=== PATIENT | female | born 1995 | race Caucasian/White ===

== ENCOUNTER 2024-06-05 09:49 | Emergency (ER) | payer SELFPAY ==
[2024-06-05 09:56] VITALS: BP 143/96; PULSE 93; RESP 16; TEMP 37.2; O2SAT 97; BMI 31.4
--- NOTE | 2024-06-05 10:02 | ED_ITS ---
HPI - Allergic Reaction General Chief complaint: Allergic Reaction Stated complaint: reaction to meds Time Seen by Provider: 06/05/24 09:52 Source: patient, RN notes reviewed and old records reviewed Mode of arrival: Ambulatory Limitations: no limitations History of Present Illness HPI narrative: 29-year-old female no reported medical issues who states that she was treated for pneumonia found on chest x-ray with the amoxicillin completed her antibiotics and Thursday. She noticed around Thursday that she was having some tightness and discomfort in her legs, nose little bit of redness at both ankles and some increased swelling. Patient states little bit of back and flank pain as well. She denies fevers or chills no cold cough or congestion. No chest pain or shortness of breath. No swelling of her lips or airway. No rash or skin changes elsewhere. No GI or urinary symptoms. Patient states has been persisting and not resolved. She finished her antibiotics this Thursday. She states no daily prescriptions normally. Denies any major surgeries. Had tendinopathy with ciprofloxacin but no other drug allergies. No tobacco, alcohol or reported. Marijuana occasionally, no other recreational drugs. Patient states she has not had similar symptoms in the past. Related Data Previous Rx's Medication Instructions Recorded meloxicam 7.5 mg tablet 7.5 mg PO BID PRN pain #10 tabs 06/05/24 Allergies Allergy/AdvReac Type Severity Reaction Status Date / Time ciprofloxacin [From Cipro] AdvReac Verified 06/05/24 10:17 Penicillins AdvReac Verified 06/05/24 10:17 Review of Systems Review of Systems ROS Unobtainable: All systems reviewed & are unremarkable except as noted in HPI and below Exam Narrative Exam Narrative: GENERAL: Alert and oriented x three, female in mild distress HEENT: Head normocephalic, atraumatic, EOMI, pupils reactive, face symmetric, moist mucous membranes, no oropharyngeal involvement or ulcerations or lesions. Swelling. NECK: Supple, full range of motion CARDIOVASCULAR: Regular rate and rhythm without murmurs, rubs or gallops. RESPIRATORY: Breath sounds equal bilaterally, no wheezes rales or rhonchi. Tachypnea accessory muscle ABDOMEN: Soft, nontender. Normoactive bowel sounds all 4 quadrants. No guarding or rebound, rigidity, no mass : No CVA tenderness EXTREMITIES: Normal range of motion, no clubbing. Very mild edema ankles. +dorsalis pedis bilaterally. There is some slight erythema bilateral ankles but no warmth, no other rash or skin changes noted. Neurovascularly intact NEUROLOGICAL: Cranial nerves II through XII grossly intact. Moving all extremities SKIN: Warm, dry, no petechiae, no rashes or lesions otherwise noted. Initial Vital Signs Initial Vital Signs: Vital Signs Temperature 98.9 F 06/05/24 09:56 Pulse Rate 93 H 06/05/24 09:56 Respiratory Rate 16 06/05/24 09:56 Blood Pressure 143/96 H 06/05/24 09:56 Pulse Oximetry 97 06/05/24 09:56 Oxygen Delivery Method Room Air 06/05/24 09:56 Course Orders Ordered: ED Orders 06/05/24 10:20 EKG-12 Lead Stat 06/05/24 10:21 Chest [XR chest 1V] Stat 06/05/24 10:40 BNP [NT-proBNP (BNP-Adult 18+)] Stat CBC Auto Diff [Complete Blood Count AUTO DIFF] Stat CMP [Comprehensive Metabolic Panel] Stat Troponin & CK Cardiac Panel Stat Vital Signs Vital signs: Vital Signs - 8 hr 06/05/24 09:56 06/05/24 11:40 Temperature 98.9 F Pulse Rate 93 H 94 H Respiratory Rate 16 18 Blood Pressure 143/96 H 130/81 Pulse Oximetry 97 100 Oxygen Delivery Method Room Air Room Air MDM - Allergic Reaction Lab Data 06/05/24 10:40 06/05/24 10:40 Labs: Lab Results 06/05/24 Range/Units 10:40 WBC 12.8 H (4.5-11.0) X10^3/uL RBC 4.40 (4.0-5.2) X10^6/uL Hgb 13.6 (12.0-16.0) g/dL Hct 40.7 (36-46) % MCV 92.5 (80-100) fL MCH 30.9 (26-34) PG MCHC 33.4 (30-36) % RDW 12.5 (11.6-14.8) % Plt Count 285 (150-400) X10^3/uL Neut % (Auto) 85.4 H (50-75) % Lymph % (Auto) 4.3 L (25-40) % [place] % (Auto) 8.2 (3-14) % Eos % (Auto) 0.7 L (2-4) % Baso % (Auto) 1.4 (0-2) % Neut # (Auto) 65552 H (3486-8050) /uL Lymph # (Auto) 600 L (4797-0601) /uL [place] # (Auto) 1100 H (0-900) /uL Eos # (Auto) 100 (0-450) /uL Baso # (Auto) 200 H (0-100) /uL Sodium 138 (137-145) mmol/L Potassium 3.9 (3.4-5.1) mmol/L Chloride 106 (98-107) mmol/L Carbon Dioxide 24 (22-32) mmol/L BUN 7 (7-17) mg/dL Creatinine 0.67 (0.52-1.04) mg/dL Estimated GFR > 60 (>60) mL/min BUN/Creatinine Ratio 10.4 (6-22) Glucose 111 H (70-100) mg/dL Calcium 9.4 (8.4-10.2) mg/dL Total Bilirubin 1.5 H (0.2-1.3) mg/dL AST 27 (14-36) IU/L ALT 27 (<35) IU/L Alkaline Phosphatase 87 (38-126) U/L Total Creatine Kinase 75 (30-135) U/L Troponin I < 0.012 (0.01-0.034) ng/mL NT-Pro-B Natriuret Pep 70 (<125) pg/mL Total Protein 7.7 (6.3-8.2) g/dL Albumin 4.5 (3.5-5.0) g/dL Globulin 3.2 (1.7-4.1) g/dL Albumin/Globulin Ratio 1.4 (1.0-2.8) Imaging Data Chest x-ray: Radiologist's Impression: Close Chest X-Ray (Signed) Nadir Meng - 06/05/[address] [address] XRay Report Signed Patient: Abelino Pink MR#: [id number] : 1995 Acct:[id number] Age/Sex: 29 / F Date of Service: 06/05/24 Loc: ED Accession Number: [id number] Procedure: XR chest 1V Ordering Provider: Merna Sales D.O. PROCEDURE: XR CHEST 1V INDICATIONS: swelling ankles, had pna 1-2 weeks ago, tx abx TECHNIQUE: One view of the chest was acquired. COMPARISON: None. FINDINGS: Surgical changes and devices: None. Lungs and pleura: Lungs are clear. No pleural effusions or pneumothorax. Mediastinum: Mediastinal contours appear normal. Heart size is normal. Bones and chest wall: No suspicious bony lesions. Overlying soft tissues appear unremarkable. Incidental note is made of a metallic body ornamentation artifact. IMPRESSION: No focal infiltrates are seen. No acute cardiopulmonary abnormality is seen. Dictated by: Nadir Meng M.D. on 06/05/2024 at 10:03 Approved by: Nadir Meng M.D. on 06/05/2024 at 10:03 ECG Data Attestation: I personally reviewed and interpreted this ECG as follows: Prior ECG tracings: not available for review Interpretation: Sinus rhythm rate 87 NC 130 QRS is 78 QTC 413, no acute ST elevation depression noted. No priors for comparison. MDM Narrative Medical decision making narrative: 29-year-old female who completed a course of amoxicillin for pneumonia. Patient stated about 4 days prior to completing her prescription she noticed some swelling and tightness in his legs as well as some muscle aches she states they have not resolved. She has not had any fevers, has not had any other allergic- type symptoms. White count of 12.8 hemoglobin of 13 platelets of 285, electrolytes are normal BUN 7 creatinine 0.67 glucose is 111 bilirubin is 1.5 otherwise normal LFTs and troponin less than 0.012 with a CK of 75 and a BNP of 70. Chest x-ray shows no acute change EKG shows sinus rhythm Discussed with patient seems less likely to be reaction to amoxicillin she has had bilateral lower extremity swelling mostly in her ankles which is fairly mild. Did evaluate for any sort of NONI or CHF exacerbation with recent respiratory illness negative for major changes bilirubin is slightly elevated though. Discharge Plan Departure Patient Disposition: Home Clinical Impression: Bilateral edema of lower extremity, Elevated bilirubin Activity Restrictions/Additional Instructions: Please follow up with your physician for recheck. Your workup today shows a mildly elevated bilirubin, this could be related to have taking amoxicillin but could other potential causes as well. I do not believe that you had an allergic reaction to amoxicillin based on your current symptoms but share your symptoms with your physician. You can take 1 tablet every 12 hours as needed for pain. Do not take any ibuprofen, Aleve, naproxen or NSAIDs with this medication, you can take Tylenol up to a 1000 mg every 6 hours as needed with the medication. Please return if you have increasing swelling of your extremities, new redness, increasing pain or other changes to your extremities, new chest pain or shortness of breath, lightheadedness or passing out fevers, persistent vomiting or other new or concerning changes. Prescriptions: New meloxicam 7.5 mg tablet 7.5 mg PO BID PRN (Reason: pain) Qty: 10 0RF Stand Alone Forms: Patient Portal/API/Survey
--- NOTE | 2024-06-05 10:21 | DI.RAD.S_ITS ---
PROCEDURE: XR CHEST 1V INDICATIONS: swelling ankles, had pna 1-2 weeks ago, tx abx TECHNIQUE: One view of the chest was acquired. COMPARISON: None. FINDINGS: Surgical changes and devices: None. Lungs and pleura: Lungs are clear. No pleural effusions or pneumothorax. Mediastinum: Mediastinal contours appear normal. Heart size is normal. Bones and chest wall: No suspicious bony lesions. Overlying soft tissues appear unremarkable. Incidental note is made of a metallic body ornamentation artifact. IMPRESSION: No focal infiltrates are seen. No acute cardiopulmonary abnormality is seen. Dictated by: Nadir Meng M.D. on 06/05/2024 at 10:03 Approved by: Nadir Meng M.D. on 06/05/2024 at 10:03
--- NOTE | 2024-06-05 10:29 | EKG_ITS ---
[facility] [address] [place] [address] Test Date: 2024-06-05 Pat Name: Abelino Pink Department: 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
[2024-06-05 10:51] LABS: Add Manual Diff / Slide Review NO; Basophils Absolute Auto 200 /uL (0-100); Basophils Percent Auto 1.4 % (0-2); Eosinophils Absolute Auto 100 /uL (0-450); Eosinophils Percent Auto 0.7 % (2-4); Hematocrit 40.7 % (36-46); Hemoglobin 13.6 g/dL (12.0-16.0); Lymphocytes Absolute Auto 600 /uL (1100-4500); Lymphocytes Percent Auto 4.3 % (25-40); Mean Corpuscular HGB Conc 33.4 % (30-36); Mean Corpuscular Hemoglobin 30.9 PG (26-34); Mean Corpuscular Volume 92.5 fL (80-100); Monocytes Absolute Auto 1100 /uL (0-900); Monocytes Percent Auto 8.2 % (3-14); Neutrophils Absolute Auto 10900 /uL (1500-7000); Neutrophils Percent Auto 85.4 % (50-75); Platelet Count 285 X10^3/uL (150-400); Red Cell Distribution Width 12.5 % (11.6-14.8); White Blood Cell Count 12.8 X10^3/uL (4.5-11.0)
[2024-06-05 11:00] LABS: Alanine Aminotransferase 27 IU/L (<35); Albumin 4.5 g/dL (3.5-5.0); Albumin Globulin Ratio 1.4 (1.0-2.8); Alkaline Phosphatase 87 U/L (38-126); Aspartate Aminotransferase 27 IU/L (14-36); BUN Creatinine Ratio 10.4 (6-22); Bilirubin Total 1.5 mg/dL (0.2-1.3); Blood Urea Nitrogen 7 mg/dL (7-17); Calcium 9.4 mg/dL (8.4-10.2); Carbon Dioxide 24 mmol/L (22-32); Chloride 106 mmol/L (98-107); Creatine Kinase 75 U/L (30-135); Estimated Glomerular Filt Rate > 60 mL/min (>60); Globulin 3.2 g/dL (1.7-4.1); Glucose 111 mg/dL (70-100); HEMOLYSIS < 15 (0-50); Potassium 3.9 mmol/L (3.4-5.1); Sodium 138 mmol/L (137-145); Total Protein 7.7 g/dL (6.3-8.2)
[2024-06-05 11:12] LABS: NT-proBNP (BNP-Adult 18+) 70 pg/mL (<125); Troponin I < 0.012 ng/mL (0.01-0.034)
[2024-06-05 11:40] VITALS: BP 130/81; PULSE 94; RESP 18; O2SAT 100
== END 2024-06-05 11:42 | disposition home or self-care (01) ==
PROVIDERS: Emergency Provider Emergency Medicine
DX: R60.0 Localized edema (principal); E80.6 Other disorders of bilirubin metabolism
CPT/HCPCS: 36415; 71045; 80053; 82550; 83880; 84484; 85025; 93005; 99281; 99284